=== PATIENT | female | born 1990 | race Caucasian/White ===

== ENCOUNTER 2016-07-17 11:42 | Emergency (ER) | payer SELFPAY ==
[~2016-07-17] VITALS: Ht 162.6 cm; Wt 68.5 kg
[2016-07-17 11:45] VITALS: TEMP 36.8; Ht 162.6 cm; Wt 68.5 kg
[2016-07-17] MEDS ORDERED: XYLOCAINE 1%/SOD BICARB 20 ML VIAL INFIL ONE (12:15)
[2016-07-17] MEDS ORDERED: ACETAMINOPHEN 500 MG TAB PO ONE (12:21)
[2016-07-17 12:54] VITALS: BP 115/62; PULSE 78; O2SAT 98
--- NOTE | 2016-07-17 20:30 | EMERGENCY ROOM VISIT NOTE ---
ED Visit Note First contact with patient: 11:55 Chief Complaint: I cut my right thumb. History of Present Illness: Ms. Menchaca is a 26-year-old female who ambulates into the ED complaining of a right thumb laceration over the lateral and posterior aspect of the first metacarpal. She reports approximately 30 minutes ago she cut her thumb while she was opening a can. She was able to control bleeding prior to arrival at the hospital but did not wash the wound. Associated with her wound she reports she has a stinging pain in the area of her laceration. She rates her discomfort 8/10. The pain is nonradiating. The pain worsens with all movement of the MCP joint and palpation. She has not identified any alleviating factors related to the pain. She has not taken any medications for pain prior to arrival at the hospital. She denies any associated symptoms including other hand pain, other finger pain, thumb weakness /numbness/tingling Review of Systems: As noted above in History of Present Illness. Past Medical History: Patient denies. Current Medications: Patient denies. Allergies to Medications: Patient denies. Social History: Patient lives with her and feels safe in her home environment; she denies tobacco use. Tetanus Immunization Status: Patient reports up-to-date. Physical Examination: Vital Signs: Date Time Temp Pulse Resp B/P Pulse Ox O2 Delivery O2 Flow Rate FiO2 07/17/16 12:54 78 16 115/62 98 07/17/16 11:45 36.8 82 20 119/60 96 Room Air GENERAL: 26-year-old female in mild to moderate distress due to pain, nontoxic- appearing, afebrile and hemodynamically stable. NEUROLOGICAL: Awake, alert and oriented to person, place and time. Answering questions appropriately and following commands. Normal gait. Good hand eye coordination. No focal motor sensory deficits. SKIN: Warm, dry and pink. Right Thumb: Over the posterior aspect of the thumb over the first metacarpal patient has a 2.3 cm full-thickness laceration. RIGHT HAND: No gross bony deformity. Soft tissue noted above in SKIN. Moderate tenderness over her laceration. Full range of motion in all movements of the MCP and interphalangeal joint. Throughout the thumb the skin was warm and pink and capillary refill is brisk. She was able to distinguish light sensations through all dermatomes. ED Course: Patient is assessed as noted above. Patient was given 1 g of Tylenol by mouth for pain. Wound Repair: Complexity: Basic Verbal consent was obtained after the risks and benefits were explained. The skin was prepped with betadine and a sterile field set. Wound edges of the wound was anesthetized with 1.8 ml buffered 1% lidocaine. The wound was explored for foreign bodies and none found. Copious irrigation was performed using sterile saline. With direct pressure the bleeding subsided. Debridement was not performed. The wound edges were approximated using 5-0 Ethilon with 4 simple interrupted sutures. Hemostasis and excellent approximation was achieved. Antibacterial ointment and a sterile dressing applied. No complications and the patient tolerated the procedure well. Patient was educated about tonight's findings and instructed on her treatment plan; she verbalizes understanding and agreement with this plan. Clinical Impression: Laceration of the right thumb. Disposition: Patient discharged home in stable condition; prior to departure he was reassessed and subjectively reported she was feeling much better and rated her discomfort 2/10. Plan: Comfort measures, wound care, and signs of infection were discussed with the patient. Patient was encouraged to follow-up with [facility] or return to the ED for signs of infection and/or suture removal in 10-12 days
== END 2016-07-17 12:55 | disposition home or self-care (01) ==
LOC: C.EDB 11:45 → C.EDD 12:55
DX: S61.011A Laceration without foreign body of right thumb without damage to nail, initial encounter (principal); W26.8XXA Contact with other sharp object(s), not elsewhere classified, initial encounter

== ENCOUNTER 2016-07-29 11:56 | Emergency (ER) | payer SELFPAY ==
[2016-07-29 12:02] VITALS: BP 109/74; PULSE 88; TEMP 36.6; O2SAT 97
--- NOTE | 2016-07-29 12:22 | EMERGENCY ROOM VISIT NOTE ---
ED Visit Note First contact with patient: 12:08 CHIEF COMPLAINT: Suture removal right thumb HISTORY of present illness: This patient returns to the ED today for removal of sutures that were placed 12 days ago into the right thumb. There has been no swelling, redness, or drainage from the wound. The patient feels like the laceration is healing well. REVIEW OF SYSTEMS: 3 system review was performed and was negative unless stated otherwise in history of present illness. PMH: The patient is healthy; there is no significant medical or surgical history. SOCIAL HISTORY: Patient lives with her family. The patient denies tobacco use. PHYSICAL EXAM: Vital Signs: Were reviewed Reviewed Nurse's notes. GEN.: 26-year -old female appears in no acute distress. MENTAL Status: Alert and oriented 3. RIGHT THUMB: There is a sutured wound on the dorsal aspect of the MCP joint with no signs of infection. There is no erythema, swelling, or tenderness. EMERGENCY DEPARTMENT COURSE: The sutures were removed without any difficulty and there was no separation of the wound edges. DIAGNOSIS: Healing left thumb laceration and suture removal DISCHARGE INSTRUCTIONS AND TREATMENT: Wash any remaining crusts off of the wound today and resume your normal activities. Current/Historical Medications No Active Prescriptions or Reported Meds Allergies Coded Allergies: No Known Allergies (Unverified , 07/17/16) Vital Signs Date Time Temp Pulse Resp B/P Pulse Ox O2 Delivery O2 Flow Rate FiO2 07/29/16 12:02 36.6 88 20 109/74 97 Room Air Departure Information Prescriptions No Active Prescriptions or Reported Meds Referrals No Doctor, Assigned (PCP) Patient Instructions [facility]
== END 2016-07-29 12:18 | disposition home or self-care (01) ==
LOC: C.EDB 11:57 → C.EDD 12:18
DX: Z48.02 Encounter for removal of sutures (principal)

== ENCOUNTER → 2017-05-09 | Outpatient (CLI) | payer OTHER | END | disposition home or self-care (01) | LOC: C.LABSPEC 12:19 | PROVIDERS: ATTEND Obstetrics & Gynecology | DX: Z34.82 Encounter for supervision of other normal pregnancy, second trimester (principal) ==

== ENCOUNTER → 2017-05-30 | Outpatient (CLI) | payer OTHER ==
[2017-05-30 11:16] LABS: HEMATOCRIT 28.3 % (37-47); HEMOGLOBIN 9.1 g/dL (12.0-16.0)
== END | disposition home or self-care (01) ==
LOC: C.LAB1850 10:08
PROVIDERS: ATTEND Obstetrics & Gynecology
DX: Z34.83 Encounter for supervision of other normal pregnancy, third trimester (principal)

== ENCOUNTER → 2017-06-15 | Outpatient (CLI) | payer OTHER ==
[2017-06-15 11:19] LABS: TRANSFERRIN 401 mg/dl (200-360)
== END | disposition home or self-care (01) ==
LOC: C.LAB1850 09:54
PROVIDERS: ATTEND Obstetrics & Gynecology
DX: O99.013 Anemia complicating pregnancy, third trimester (principal); Z3A.00 Weeks of gestation of pregnancy not specified; D64.9 Anemia, unspecified

== ENCOUNTER → 2017-07-25 | Outpatient (CLI) | payer OTHER | END | disposition home or self-care (01) | LOC: C.LABSPEC 10:52 | PROVIDERS: ATTEND Obstetrics & Gynecology | DX: Z34.83 Encounter for supervision of other normal pregnancy, third trimester (principal); Z3A.00 Weeks of gestation of pregnancy not specified ==